=== PATIENT | female | born 1940 | race Caucasian/White ===

== ENCOUNTER 2017-05-08 10:23 | Emergency (ER) | payer MEDICARE, OTHER ==
[2017-05-08 10:48] VITALS: BP 158/81
--- NOTE | 2017-05-08 10:58 | UC ---
Complaint Female HPI - HPI Summary HPI Summary: Pt c/o sudden onset of urinary frequency, urgency and dysuria X 1 day. Pt has history of hematuria. Is followed by urologist - History Of Current Complaint Chief Complaint: UCGU Stated Complaint: URINARY Time Seen by Provider: 05/08/17 10:48 Hx Obtained From: Patient ?: No Onset/Duration: Sudden Onset, Still Present Timing: Constant Severity Initially: Mild Severity Currently: Mild Pain Intensity: 0 Character: Burning Aggravating Factor(s): Urination Associated Signs And Symptoms: Positive: Negative - Risk Factors Ectopic Risk Factor: Negative - Allergies/Home Medications Allergies/Adverse Reactions: Allergies Allergy/AdvReac Type Severity Reaction Status Date / Time amoxicillin [From Augmentin] Allergy GI Upset Verified 05/08/17 10:38 clavulanic acid Allergy GI Upset Verified 05/08/17 10:38 [From Augmentin] enalapril Allergy Coughing Verified 05/08/17 10:38 Home Medications: Home Medications hydroCHLOROthiazide [Hydrochlorothiazide] 12.5 mg PO 05/08/17 [History] PMH/Surg Hx/FS Hx/Imm Hx Previously Healthy: Yes Cardiovascular History: Hypertension GI/ History: Kidney Stones, Other - hematuria Other GI/ History: hematuria Neurological History: TIA - Surgical History Surgical History: Yes Surgery Procedure, Year, and Place: 1989 SEPTOPLASTY, [facility];. 1992 DILATION AND CURETTAGE, [facility];. 2004 COLPOSCOPY, [facility];. COLONOSCOPY AND ENDOSCOPY; - Family History Known Family History: Positive: Cardiac Disease - Social History Occupation: Retired Lives: Alone Alcohol Use: Occasionally Substance Use Type: None Smoking Status (MU): Former Smoker Have You Smoked in the Last Year: No When Did the Patient Quit Smoking/Using Tobacco: >15 YEARS Review of Systems Constitutional: Negative Skin: Negative Eyes: Negative ENT: Negative Respiratory: Negative Cardiovascular: Negative Gastrointestinal: Other - pelvic discomfort Genitourinary: Dysuria, Hematuria, Frequency, Urgency Motor: Negative Neurovascular: Negative Musculoskeletal: Negative Neurological: Negative Psychological: Negative Is Patient Immunocompromised?: No All Other Systems Reviewed And Are Negative: Yes Physical Exam Triage Information Reviewed: Yes Appearance: Well-Appearing Vital Signs: Initial Vital Signs Temp 98.8 F 05/08/17 10:38 Pulse 60 05/08/17 10:38 Resp 18 05/08/17 10:38 BP 158/81 05/08/17 10:38 Pulse Ox 99 05/08/17 10:38 Vital Signs Reviewed: Yes Eye Exam: Normal ENT Exam: Normal Neck exam: Normal Respiratory Exam: Normal Cardiovascular Exam: Normal Abdomen Description: Positive: Other: - suprapubic tenderness Musculoskeletal Exam: Other Musculoskeletal: Positive: Other: - left sided weakness Neurological: Positive: Other: - left sided weakness Psychological Exam: Normal Skin Exam: Normal Complaint Female Dx - Differential Dx/Diagnosis Differential Diagnosis/HQI/PQRI: Urinary Tract Infection, Other - kidney stone Provider Diagnoses: UTI Discharge - Sign-Out/Discharge Documenting (check all that apply): Discharge - Discharge Plan Condition: Stable Disposition: HOME Prescriptions: Phenazopyridine TAB* [Pyridium 100 mg TAB*] 100 mg PO Q8H #3 tab Sulfamethox/Trimethoprim DS* [Bactrim DS 800/160 TAB*] 1 tab PO Q12H #10 tab Patient Education Materials: Urinary Tract Infection in Women (DC) Referrals: Lacey Rasmussen MD [Primary Care Provider] - If Needed - Billing Disposition and Condition Condition: STABLE Disposition: HOME
== END 2017-05-08 11:07 | disposition home or self-care (01) ==
LOC: UCCORT 10:23
DX: N39.0 Urinary tract infection, site not specified (principal); R31.9 Hematuria, unspecified; Z88.0 Allergy status to penicillin; Z88.8 Allergy status to other drugs, medicaments and biological substances; I10 Essential (primary) hypertension; Z87.891 Personal history of nicotine dependence
CPT/HCPCS: 81003; 99212; G0463

== ENCOUNTER 2018-09-28 15:46 | Emergency (ER) | payer MEDICARE, OTHER ==
[2018-09-28 16:06] VITALS: BP 128/78
--- NOTE | 2018-09-28 16:36 | UC ---
Skin Complaint HPI - HPI Summary HPI Summary: 78-year-old woman comes in with a chief complaint of a rash in her groin area and also thrush. Please coconut oil on the urinary and it's improving. Denies any vaginal symptoms. The last day noticed some white plaques on her throat and her mouth which she believes is thrush. Fevers chills feels well otherwise. - History of Current Complaint Chief Complaint: UCSkin Time Seen by Provider: 09/28/18 16:26 Stated Complaint: PERSONAL Hx Last Menstrual Period: N/A Pain Intensity: 0 - Allergy/Home Medications Allergies/Adverse Reactions: Allergies Allergy/AdvReac Type Severity Reaction Status Date / Time amoxicillin [From Augmentin] Allergy GI Upset Verified 09/28/18 16:06 clavulanic acid Allergy GI Upset Verified 09/28/18 16:06 [From Augmentin] enalapril Allergy Coughing Verified 09/28/18 16:06 Home Medications: Home Medications Carbidopa/Levodop ER 25/100 MG [Carbidopa-Levo ER 25-100 Tab] 1 tab PO DAILY [History Confirmed 09/28/18] PMH/Surg Hx/FS Hx/Imm Hx Previously Healthy: Yes Cardiovascular History: Hypertension - Surgical History Surgical History: Yes Surgery Procedure, Year, and Place: 1989 SEPTOPLASTY, [facility];. 1992 DILATION AND CURETTAGE, [facility];. 2004 COLPOSCOPY, [facility];. COLONOSCOPY AND ENDOSCOPY; - Family History Known Family History: Positive: Cardiac Disease - Social History Alcohol Use: Occasionally Substance Use Type: None Smoking Status (MU): Former Smoker Have You Smoked in the Last Year: No When Did the Patient Quit Smoking/Using Tobacco: >15 YEARS Review of Systems All Other Systems Reviewed And Are Negative: Yes Constitutional: Positive: Negative Skin: Positive: Rash Eyes: Positive: Negative ENT: Positive: Other - see hpi Respiratory: Positive: Negative Cardiovascular: Positive: Negative Gastrointestinal: Positive: Negative Genitourinary: Positive: Negative Motor: Positive: Negative Neurovascular: Positive: Negative Musculoskeletal: Positive: Negative Neurological: Positive: Negative Psychological: Positive: Negative Is Patient Immunocompromised?: No Physical Exam Triage Information Reviewed: Yes Appearance: Well-Appearing, No Pain Distress, Well-Nourished Vital Signs: Initial Vital Signs Temp 97.9 F 09/28/18 16:00 Pulse 62 09/28/18 16:00 Resp 16 09/28/18 16:00 BP 128/78 09/28/18 16:00 Pulse Ox 98 09/28/18 16:00 Vital Signs Reviewed: Yes Eye Exam: Normal Eyes: Positive: Conjunctiva Clear ENT: Positive: Pharynx normal Neck: Positive: Supple Respiratory: Positive: No respiratory distress Musculoskeletal: Positive: Strength Intact, ROM Intact Neurological: Positive: Alert, Muscle Tone Normal Psychological: Positive: Age Appropriate Behavior Skin: Positive: Other - Erythematous rash in the inguinal area along the skin fold lines. Course/Dx - Course Course Of Treatment: Going to treat for thrush with nystatin swish and swallow. The inguinal yeast is improving with the [place] patient said she has my, solid home that she will use. No evidence of vaginal and yeast infection at this time didn't do a prescription for Diflucan to use if needed. Follow-up with primary care doctor reevaluation sooner if worse. - Diagnoses Provider Diagnosis: Thrush, oral, Alivia rash of groin Discharge - Sign-Out/Discharge Documenting (check all that apply): Patient Departure All imaging exams completed and their final reports reviewed: No Studies - Discharge Plan Condition: Stable Disposition: HOME Prescriptions: Fluconazole 150 MG TAB* [Diflucan 150 MG TAB*] 150 mg PO ONCE #2 tablet Nystatin SUSPENSION* 500,000 units .SEE ORDER QID #200 ml Patient Education Materials: Oral Candidiasis (ED), Skin Yeast Infection (ED) Referrals: Lacey Rasmussen MD [Primary Care Provider] - Additional Instructions: FOLLOW UP WITH YOUR DOCTOR IF NOT COMPLETELY IMPROVED. GET RECHECKED SOONER IF YOUR CONDITION WORSENS OR ANY QUESTIONS OR CONCERNS. - Billing Disposition and Condition Condition: STABLE Disposition: Home
== END 2018-09-28 16:47 | disposition home or self-care (01) ==
LOC: UCCORT 15:46
DX: B37.0 Candidal stomatitis (principal); B37.2 Candidiasis of skin and nail; I10 Essential (primary) hypertension; Z88.1 Allergy status to other antibiotic agents; Z88.0 Allergy status to penicillin; Z88.8 Allergy status to other drugs, medicaments and biological substances; Z87.891 Personal history of nicotine dependence
CPT/HCPCS: 99212; G0463